=== PATIENT | male | born 1960 | race Caucasian/White ===

== ENCOUNTER 2019-08-12 20:21 | Outpatient (REF) | payer BC, SELFPAY ==
[2019-08-12 19:31] LABS: Abs Immature Grans 0.01 k/cumm (0.0-0.09); Absolute Basophil Count 0.04 k/cumm (0.0-0.2); Absolute Lymphocyte Count 1.67 k/cumm (1.2-3.4); Absolute Monocyte Count 0.42 k/cumm (0.11-0.7); Absolute Neutrophil Count 2.87 k/cumm (1.2-6.7); Basophils % 0.8; HCT 41.8 % (40.0-50.0); HGB 14.1 g/dL (13.5-17.5); Immature Grans % 0.2 %; Lymphocytes % 32.7; Mean Corp. HGB Concentration 33.7 g/dL (32.0-36.0); Mean Corpuscular Hemoglobin 28.7 pg (27.0-33.0); Mean Platelet Volume 10.8 fL (8.0-11.0); Monocytes % 8.2; Neutrophils % 56.1; Platelet Count 299 x1000/uL (130-400); RBC 4.92 m/cumm (4.50-6.00); RBC Distribution Width 12.7 % (11.8-14.1); White Blood Cell Count 5.11 k/cumm (4.4-10.8)
[2019-08-12 19:54] LABS: ALT 44 U/L (16-63); AST 18 U/L (15-37); Albumin 3.7 g/dL (3.4-5.0); Alkaline Phosphatase 73 U/L (46-116); Anion Gap 12.3 mmol/L (3-11); BUN 19 mg/dL (7-18); Bilirubin, Total 0.5 mg/dL (0.2-1.0); CO2 24.7 mmol/L (21.0-32.0); CREATININE 1.08 mg/dL (0.70-1.30); Calcium 8.8 mg/dL (8.5-10.1); Calculated LDL 96 mg/dL; Chloride 104 mmol/L (98-107); Cholesterol 149 mg/dL (<200); Glucose 137 mg/dL (74-106); HDL Cholesterol 38 mg/dL (40-60); Potassium 4.2 mmol/L (3.5-5.1); Sodium 141 mmol/L (136-145); Total Protein 6.7 g/dL (6.4-8.2); Triglyceride 78 mg/dL (<150)
[2019-08-12 19:55] LABS: COMMENT (LAB VIEW ONLY) 113.24 mg/dL
== END 2019-08-12 20:41 ==
LOC: NCHCN 20:21
PROVIDERS: PCP Physician Assistant; Visit Provider Physician Assistant
DX: E11.9 Type 2 diabetes mellitus without complications (principal); E78.5 Hyperlipidemia, unspecified
CPT/HCPCS: 80053; 80061; 82043; 82570; 85025

== ENCOUNTER 2020-08-12 11:31 | Outpatient (REF) | payer BC, SELFPAY ==
[2020-08-12 16:24] LABS: COMMENT (LAB VIEW ONLY) 79.18 mg/dL; Microalb ug/mg Crea 63.5 ug/mg Cr
[2020-08-12 16:27] LABS: Hemoglobin A1C 8.9 % (<5.7)
[2020-08-12 16:34] LABS: ALT 47 U/L (16-63); AST 23 U/L (15-37); Albumin 4.1 g/dL (3.4-5.0); Alkaline Phosphatase 63 U/L (46-116); Anion Gap 7.1 mmol/L (3-11); BUN 21 mg/dL (7-18); Bilirubin, Total 0.7 mg/dL (0.2-1.0); CO2 28.9 mmol/L (21.0-32.0); CREATININE 1.32 mg/dL (0.70-1.30); Calcium 9.3 mg/dL (8.5-10.1); Calculated LDL 71 mg/dL (<100); Chloride 104 mmol/L (98-107); Cholesterol 126 mg/dL (<200); Estimated GFR 55.71 (mL/min/1.73m2); Glucose 222 mg/dL (74-106); HDL Cholesterol 38 mg/dL (40-60); Potassium 4.9 mmol/L (3.5-5.1); Sodium 140 mmol/L (136-145); TSH (W/Ref FT4) 2.81 uIU/mL (0.36-3.74); Total Protein 7.2 g/dL (6.4-8.2); Triglyceride 86 mg/dL (<150)
== END 2020-08-12 11:51 ==
LOC: NCHCN 11:31
PROVIDERS: PCP Physician Assistant; Visit Provider Physician Assistant
DX: I10 Essential (primary) hypertension (principal); E11.9 Type 2 diabetes mellitus without complications; E78.5 Hyperlipidemia, unspecified
CPT/HCPCS: 80053; 80061; 82043; 82570; 83036; 84443

== ENCOUNTER 2021-02-24 16:20 | Outpatient (REF) | payer BC, SELFPAY ==
[2021-02-24 19:12] LABS: Anion Gap 10.3 mmol/L (3-11); BUN 18 mg/dL (7-18); CO2 26.7 mmol/L (21.0-32.0); CREATININE 1.4 mg/dL (0.70-1.30); Calcium 9.3 mg/dL (8.5-10.1); Chloride 106 mmol/L (98-107); Estimated GFR 51.87 (mL/min/1.73m2); Glucose 234 mg/dL (74-106); Potassium 4.4 mmol/L (3.5-5.1); Sodium 143 mmol/L (136-145)
[2021-02-24 19:28] LABS: Hemoglobin A1C 8.4 % (<5.7)
== END 2021-02-24 16:21 | disposition home or self-care (01) ==
LOC: NCHCN 16:20
PROVIDERS: PCP Physician Assistant; Visit Provider Physician Assistant
DX: E11.65 Type 2 diabetes mellitus with hyperglycemia (principal)
CPT/HCPCS: 80048; 83036

== ENCOUNTER 2021-10-25 01:23 | Outpatient (CLI) | payer BC, SELFPAY ==
--- NOTE | 2021-10-25 14:00 | DI.US_ITS ---
APPROVED REPORT EXAM: Comprehensive 2D, Doppler, and color-flow Echocardiogram Patient Location: Out-Patient Pipefitter: Liz Moore RDCS (AE) Indications: Hyperlipidemia, F/H Heart disease, Possible let retinal branch artery occlusion, Other Information Study Quality: Fair. Technically limited study due to body habitus. Conclusion Technically difficult but adequate study Normal left ventricular wall thickness and chamber size. Estimated ejection is 50 to 55%, mildly red uced systolic function. There is mild global hypokinesis Normal right ventricular size and systolic function Both atria are normal in size There is no structural or hemodynamically significant valvular disease Wall motion Left Ventricle The left ventricle is normal size. Left ventricular systolic function is mildly decreased. There is n ormal left ventricular wall thickness. There is mild global hypokinesis of the left ventricle. There is no ventricular septal defect visualized. LVEF is 50-55%. Right Ventricle Right ventricle is grossly normal in size. Right ventricular systolic function is grossly normal. Atria The left atrium size is normal. The right atrium size is normal. The interatrial septum is intact wit h no evidence for an atrial septal defect. Aortic Valve The aortic valve is normal in structure. Aortic valve is trileaflet. There is no aortic valvular sten osis. No aortic regurgitation is present. Mitral Valve The mitral valve is normal in structure. No evidence of mitral valve stenosis. Trace mitral regurgita tion. Tricuspid Valve The tricuspid valve is normal in structure. There is no tricuspid valve stenosis. Trace tricuspid reg urgitation. Unable to assess PA pressure. Pulmonic Valve Pulmonic valve is not well visualized. There is no pulmonic valvular stenosis. There is no pulmonic v alvular regurgitation. Great Vessels The aortic root is normal in size. The ascending aorta is normal in size. Aortic arch is not well vis ualized. IVC is normal in size and collapses >50% with inspiration. Pericardium There is no pericardial effusion. 2D Dimensions IVSD d PLAX 0.97 cm M: 0.6-1.2 LV Vol A2C d MOD 109.3 mL LVPW d PLAX 1.02 cm M: 0.6 - 1.2 LV Vol A4C d MOD 121.0 mL LVID d PLAX 4.80 cm M: 4.2 - 5.8 LA vol/ BSA A2C s A-L 16.2 mL/m2 LVDs 3.70 cm M: 2.5 - 4.0 LA vol/ BSA A4C s A-L 17.3 mL/m2 Ao Root d 3.15 cm M: 3.1 - 3.7 LA Vol/ BSA Biplane s A-L 17.0 mL/m2 RA Area A4C 12.93 cm2 LA Area A4C s MOD 14.86 cm2 RA Vol/ BSA A4C s A-L 14.5 mL/m2 LA Area A2C s MOD 14.21 cm2 Ao Asc Diam d 3.07 cm M: 2.6 - 3.4 LV EF A4C MOD 50.1 % LV EF Teichholz 45.5 % LV EF A2C MOD 50.7 % LVEF (Beltre's) 50.24 % M: 52 - 72 LV EF Biplane MOD 50.2 % LV Volume 86.92 mL M: 62 - 150 SV 59.42 mL LV Volume Index 40.80 mL/m2 M: 34 - 74 SV Index 27.92 mL/m2 LV Vol Biplane MOD 118.3 mL FS 22.65 % M-Mode TAPSE 2.18 cm (M/F) >1.7 LV Diastology MV E' medial 0.066 (>0.07 m/s) E/A Ratio 0.9 LV E/e MED 9.65 (<14) MV E Vmax 0.64 (0.4-1.3 m/s) MV E' lateral 0.051 (>0.1 m/s) MV A Vmax 0.75 (0.4-1.3 m/s) LV E/e LAT 12.65 (<14) MV E/A Ratio 0.81 MV E/E' medial 9.68 MV E/E' lateral 12.66 Aortic Valve LVOT Area 3.65 cm2 AoV Area Vmax 2.78 cm2 LVOT Vmax 0.83 m/s AoV Area/ BSA (Vmax) 1.31 cm2/m2 LVOT Mean Sushil. 0.58 m/s HARIKA Mean Sushil. 2.55 cm2 LVOT Peak Grad 2.8 mmHg HARIKA Mean Sushil. Index 1.20 cm2/m2 LVOT Mean Grad 1.5 mmHg LVOT VTI 0.153 m LVOT Diam s 2.15 cm AoV Vmax 1.09 m/s Velocity Ratio 0.76 AoV Mean Sushil. 0.83 m/s AoV Peak Grad 4.8 mmHg LVOT SV 55.71 mL AoV Mean Grad 3.0 mmHg AoV VTI 0.220 m AoV Area VTI 2.53 cm2 AoV Area/ BSA (VTI) 1.19 cm/m2 Mitral Valve MV DT 262 (160-240 msec) MV PHT 76 msec MV Area PHT 2.89 cm2 MV VTI 0.327 m MV Area VTI 1.71 (4.0-6.0 cm2) Pulmonary Valve PV Vmax 0.94 (0.5-1.5 m/s) RVOT Peak Gr. 1.09 mmHg PV Peak Grad 3.5 mmHg RVOT Mean Gr. 0.55 mmHg PV Mean Grad 1.9 mmHg RVOT VTI 0.106 m PV VTI 0.183 m RVOT Vmax 0.52 m/s
== END 2021-10-25 01:43 ==
PROVIDERS: PCP Physician Assistant; Visit Provider Physician Assistant
DX: E78.5 Hyperlipidemia, unspecified (principal)
CPT/HCPCS: 93306

== ENCOUNTER 2021-12-01 10:04 | Outpatient (CLI) | payer BC, SELFPAY ==
--- NOTE | 2021-12-01 10:00 | RT.EKG_ITS ---
APPROVED REPORT Exam: Resting ECG Reason for Exam: Low EF Patient Location: O HR:81 bpm ECG Measurements Heart Rate 81 AXIS MT 158 P 29 QRSd 94 QRS 6 QT 381 T -31 QTc 443 Conclusion Sinus rhythm...normal P axis, V-rate 50- 99 Borderline T abnormalities, inferior leads...T flat/neg, II III aVF
== END 2021-12-01 10:05 | disposition home or self-care (01) ==
LOC: DI.CARD 10:04
PROVIDERS: PCP Physician Assistant; Visit Provider Internal Medicine Cardiovascular Disease
DX: R94.30 Abnormal result of cardiovascular function study, unspecified (principal)
CPT/HCPCS: 93010

== ENCOUNTER → 2021-12-15 00:06 | Outpatient (CLI) | payer BC, SELFPAY ==
--- NOTE | 2021-12-15 15:00 | ETT_ITS ---
APPROVED REPORT Exam: Exercise Treadmill Patient Location: Out-Patient Room/Bed: Stress Nurse: Pamela Brush RN Ordering Provider:TOSHIA SALINAS, Contact Number: BMI: 34.20 Baseline Rhythm: Sinus Rhythm Indications: family h/o heart disease, DM Medical History Medical History: DM II, Hypoglycemia, ED, HLD Cardiac Medications: simvastatin, sildenafil, semaglutide, metofrmin, lisinopril, insulin glargine, a spirin Allergies: NKDA Cardiac Risk Factors: Family Hx, HLD, DM, Obesity Previous Cardiac Procedures: none Pretest Chest Pain Characteristics: none Exercise History: Moderately active Physical Disabilities: none Lung Sounds: Clear to auscultation Heart Sounds: Regular Stress Test Details Test: Exercise stress testing was performed using a Josafat protocol. Rest Stress HR Resting HR Supine: 79 bpm Max Heart Rate (APMHR): 161 bpm Resting HR Standin bpm Target HR (85% APMHR): 136 bpm Max HR Achieved: 143 bpm % of APMHR: 88 Recovery HR: 90 bpm HR response to stress: Normal HR response to stress BP Resting BP Supine: 120/72 mmHg Resting BP Standin/70 mmHg Max BP: 182/64 mmHg Recovery BP: 138/64 mmHg BP response to stress: Normal blood pressure response to stress. ECG Resting ECG: Sinus Rhythm Ectopy: none Stress ECG: Sinus Rhythm, Sinus Tachycardia ST Change: No significant ST segment changes noted Arrhythmia: None Recovery ECG: Sinus Rhythm Recovery ST Change: No significant ST segment changes noted Recovery Arrhythmia: None Clinical Reason for Termination: Fatigue Stress Symptoms: None Exercise duration: 9 min11 sec Highest Stage Reached: Stage 4: 4.2 mph at 16% grade. Exercise capacity: 10.42 METs [place] Treadmill Score: 8.5 Rate Pressure Product: 15038 Stress ECG Conclusion 1. Resting electrocardiogram was within normal limits 2. Patient exercised on the Josafat protocol and completed a workload of 10.42 METS 3. Normal heart rate and blood pressure response to exercise. The patient achieved 88% of predicted heart rate for age 4. There was no electrocardiographic evidence of myocardial ischemia 5. There were no significant dysrhythmias [place] Treadmill Score is 8.5 which is Low risk. Stress Test Summary STAGE Time (mins) Speed (mph) Grade (%) HR BP SYMPTOMS METS Supine 79 120/72 Standing 91 118/70 1 3 1.7 10 106 124/60 4.6 2 6 2.5 12 124 144/68 7 3 9 3.4 14 140 182/64 10.2 1 min recovery 121 158/60 3 min recovery 102 160/68 6 min recovery 90 138/64
== END ==
PROVIDERS: PCP Physician Assistant; Visit Provider Internal Medicine Cardiovascular Disease
DX: E11.649 Type 2 diabetes mellitus with hypoglycemia without coma (principal); Z82.49 Family history of ischemic heart disease and other diseases of the circulatory system
CPT/HCPCS: 93017

== ENCOUNTER 2022-02-22 14:44 | Outpatient (REF) | payer BC, SELFPAY ==
[2022-02-22 20:36] LABS: Anion Gap 11.1 mmol/L (3-11); BUN 18 mg/dL (7-18); CO2 26.9 mmol/L (21.0-32.0); CREATININE 1.4 mg/dL (0.70-1.30); Calcium 8.6 mg/dL (8.5-10.1); Chloride 107 mmol/L (98-107); Estimated GFR 51.69 (mL/min/1.73m2); Glucose 136 mg/dL (74-106); Potassium 4.1 mmol/L (3.5-5.1); Sodium 145 mmol/L (136-145)
== END 2022-02-22 14:45 | disposition home or self-care (01) ==
LOC: NCHCN 14:44
PROVIDERS: PCP Physician Assistant; Visit Provider Physician Assistant
DX: E11.65 Type 2 diabetes mellitus with hyperglycemia (principal)
CPT/HCPCS: 80048

== ENCOUNTER 2023-06-01 15:23 | Outpatient (REF) | payer BC, SELFPAY ==
[2023-06-01 19:06] LABS: ALT 47 U/L (16-63); AST 30 U/L (15-37); Albumin 3.7 g/dL (3.4-5.0); Alkaline Phosphatase 77 U/L (46-116); Anion Gap 10.2 mmol/L (3-11); BUN 17 mg/dL (7-18); Bilirubin, Total 0.4 mg/dL (0.2-1.0); CO2 26.8 mmol/L (21.0-32.0); CREATININE 1.5 mg/dL (0.70-1.30); Calcium 9.2 mg/dL (8.5-10.1); Chloride 106 mmol/L (98-107); Estimated GFR 52.64 (mL/min/1.73m2); Glucose 168 mg/dL (74-106); Potassium 4.3 mmol/L (3.5-5.1); Sodium 143 mmol/L (136-145); Total Protein 7.1 g/dL (6.4-8.2)
== END 2023-06-01 15:24 | disposition home or self-care (01) ==
LOC: NCHCN 15:23
PROVIDERS: PCP Physician Assistant; Visit Provider Physician Assistant
DX: E11.65 Type 2 diabetes mellitus with hyperglycemia (principal)
CPT/HCPCS: 80053

== ENCOUNTER 2023-08-30 14:56 | Outpatient (REF) | payer BC, SELFPAY ==
[2023-08-30 20:10] LABS: COMMENT (LAB VIEW ONLY) 109.66 mg/dL; Microalb ug/mg Crea 13.8 ug/mg Cr
== END 2023-08-30 14:57 | disposition home or self-care (01) ==
LOC: NCHCN 14:56
PROVIDERS: PCP Physician Assistant; Visit Provider Physician Assistant
DX: E11.65 Type 2 diabetes mellitus with hyperglycemia (principal)
CPT/HCPCS: 82043; 82570

== ENCOUNTER 2024-08-01 11:18 | Outpatient (REF) | payer BC, SELFPAY ==
[2024-08-01 19:26] LABS: ALT 27 U/L (16-63); AST 21 U/L (15-37); Albumin 3.7 g/dL (3.4-5.0); Alkaline Phosphatase 83 U/L (46-116); Anion Gap 6.2 mmol/L (3-11); BUN 16 mg/dL (7-18); Bilirubin, Total 0.48 mg/dL (0.2-1.0); CO2 29.8 mmol/L (21.0-32.0); CREATININE 1.5 mg/dL (0.70-1.30); Calculated LDL 74 mg/dL (<100); Chloride 108 mmol/L (98-107); Cholesterol 137 mg/dL (<200); Estimated GFR 52.31 (mL/min/1.73m2); Glucose 89 mg/dL (74-106); HDL Cholesterol 51 mg/dL (40-60); Sodium 144 mmol/L (136-145); Total Protein 7.1 g/dL (6.4-8.2); Triglyceride 62 mg/dL (<150)
== END 2024-08-01 11:19 | disposition home or self-care (01) ==
LOC: NCHCN 11:18
PROVIDERS: PCP Physician Assistant; Visit Provider Physician Assistant
DX: E11.65 Type 2 diabetes mellitus with hyperglycemia (principal)
CPT/HCPCS: 80053; 80061

== ENCOUNTER 2025-07-21 15:49 | Outpatient (REF) | payer BC, SELFPAY ==
[2025-07-21 20:13] LABS: ALT 29 U/L (10-49); AST 25 U/L (<34); Albumin 4.2 g/dL (3.2-5.0); Alkaline Phosphatase 75 U/L (46-116); Anion Gap 9 mmol/L (3-11); BUN 22 mg/dL (9-23); Bilirubin, Total 0.5 mg/dL (0.2-1.2); CO2 28.0 mmol/L (20.0-31.0); Calcium 9.3 mg/dL (8.3-10.6); Chloride 108 mmol/L (98-107); Glucose 249 mg/dL (74-106); Potassium 4.1 mmol/L (3.5-5.1); Sodium 145 mmol/L (136-145); Total Protein 6.9 g/dL (5.7-8.2)
== END 2025-07-21 15:50 | disposition home or self-care (01) ==
LOC: NCHCN 15:49
PROVIDERS: PCP Physician Assistant; Visit Provider Physician Assistant
DX: E11.65 Type 2 diabetes mellitus with hyperglycemia (principal)
CPT/HCPCS: 80053; 83721; 82043; 82570